=== PATIENT | female | born 1960 | race Caucasian/White ===

== ENCOUNTER 2020-01-28 08:18 | Emergency (ER) | payer SELFPAY ==
[~2020-01-28] VITALS: Ht 157.5 cm; Wt 50.0 kg
--- NOTE | 2020-01-28 08:31 | NUR ---
pt requesting a furniture mover helper
[2020-01-28] MEDS ORDERED: PLEASE ENTER ALLERGIES MC SCH (09:00)
[2020-01-28] MEDS ORDERED: ONDANSETRON ODT 4 MG PO ONE (09:00)
[2020-01-28] MEDS ORDERED: ACETAMINOPHEN 500 MG TABLET PO ONE (09:00)
[2020-01-28] MEDS ORDERED: ACETAMINOPHEN 500 MG TABLET ONE (09:14)
[2020-01-28] MEDS ORDERED: ONDANSETRON ODT 4 MG ONE (09:14)
[2020-01-28 09:29] LABS: BASOPHILS % (AUTO) 1 % (0-1); EOSINOPHILS % (AUTO) 2 % (1-7); LYMPHOCYTES % (AUTO) 20 % (22-44); MEAN CORPUSCULAR HEMOGLOBIN 31.1 pg (27.0-34.8); MEAN CORPUSCULAR HGB CONC 33.2 g/dL (32.4-35.8); MEAN PLATELET VOLUME 8.4 fL (7.4-10.4); MONOCYTES % (AUTO) 7 % (2-9); NEUTROPHILS % (AUTO) 70 % (42-75); PLATELET COUNT 341 x10^3/uL (130-400); RED CELL DISTRIBUTION WIDTH 13.2 % (9.6-15.2)
[2020-01-28 09:30] LABS: MD NO
[2020-01-28 09:38] LABS: ALBUMIN 3.7 g/dL (3.4-5.0); ANION GAP 5 mmol/L (5-15); CALCIUM 9.5 mg/dL (8.5-10.1); CHLORIDE 106 mmol/L (98-107); CREATININE 0.87 mg/dL (0.55-1.02)
--- NOTE | 2020-01-28 09:55 | NUR ---
PT GOING TO CT AT THIS TIME.
[2020-01-28 11:00] VITALS: BP 144/78
--- NOTE | 2020-01-28 11:56 | NUR ---
PT SITTING IN CHAIR BY BED GOING THROUGH HER BAGS. PT TALKING TO HERSELF QUIETLY. ERP AWARE. WILL CONTINUE TO MONITOR.
== END 2020-01-28 13:24 | disposition home or self-care (01) ==
LOC: ED 09:31
DX: S09.90XA Unspecified injury of head, initial encounter (principal); I25.2 Old myocardial infarction; I11.9 Hypertensive heart disease without heart failure; W22.09XA Striking against other stationary object, initial encounter; Y93.89 Activity, other specified; Y92.89 Other specified places as the place of occurrence of the external cause; Y99.8 Other external cause status
CPT/HCPCS: 36415; 70450; 71045; 80048; 82040; 85025; 93005; 99285; Q0162

== ENCOUNTER 2020-06-04 08:38 | Emergency (ER) | payer MEDICAID ==
[~2020-06-04] VITALS: Ht 149.9 cm; Wt 47.0 kg
[2020-06-04 08:44] VITALS: BP 149/101
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
[2020-06-04] MEDS ORDERED: hydrOXyzine 50MG TABLET ONE ×2 (09:04→09:21)
[2020-06-04] MEDS ORDERED: HYDROXYZINE PAMOATE 50MG CAP PO ONE (09:30)
--- NOTE | 2020-06-04 09:38 | NUR ---
Patient given discharge instructions and they have confirmed that they understand the instructions. Patient ambulatory with steady gait.
== END 2020-06-04 09:52 | disposition home or self-care (01) ==
LOC: ED 09:41 → MERGE 09:41 → ED 09:52
DX: M79.621 Pain in right upper arm (principal); M79.672 Pain in left foot; B86 Scabies; E11.9 Type 2 diabetes mellitus without complications; F17.210 Nicotine dependence, cigarettes, uncomplicated; Z90.710 Acquired absence of both cervix and uterus
CPT/HCPCS: 99283; 99406; Q0177

== ENCOUNTER 2020-06-29 09:17 | Emergency (ER) | payer MEDICAID ==
[~2020-06-29] VITALS: Ht 157.5 cm; Wt 46.0 kg
--- NOTE | 2020-06-29 09:20 | NUR ---
Pt states she is supposed to be taking Lisinopril and Albuterol for HTN and asthms respectively, but due to homeless status is unable to fill meds or follow up with PCP.
[2020-06-29] MEDS ORDERED: METHOCARBAMOL 750 MG TABLET ONE (09:51)
[2020-06-29] MEDS ORDERED: IBUPROFEN 200 MG TABLET ONE (09:51)
[2020-06-29] MEDS ORDERED: LISINOPRIL 10 MG TABLET ONE (09:51)
--- NOTE | 2020-06-29 09:53 | NUR ---
Pt removed all monitoring equipment and found not in room but with all belongings still present. Meds ready at bedside for when she returns to room. Department search for pt being made now.
--- NOTE | 2020-06-29 09:59 | NUR ---
Pt found back in room after department search and meds given as ordered. Pt needs clean pants because she had a small accident on her way to the restroom in hers. Donation room will be checked for pants to send her home with.
[2020-06-29] MEDS ORDERED: METHOCARBAMOL 750 MG TABLET PO ONE (10:00)
[2020-06-29] MEDS ORDERED: IBUPROFEN 200 MG TABLET PO ONE (10:00)
[2020-06-29] MEDS ORDERED: LISINOPRIL 10 MG TABLET PO ONE (10:00)
[2020-06-29 10:14] VITALS: BP 189/90
== END 2020-06-29 11:06 | disposition home or self-care (01) ==
LOC: ED 10:15
DX: S29.012A Strain of muscle and tendon of back wall of thorax, initial encounter (principal); S46.811A Strain of other muscles, fascia and tendons at shoulder and upper arm level, right arm, initial encounter; I10 Essential (primary) hypertension; Z72.9 Problem related to lifestyle, unspecified; E11.9 Type 2 diabetes mellitus without complications; Z90.710 Acquired absence of both cervix and uterus; F17.200 Nicotine dependence, unspecified, uncomplicated; X58.XXXA Exposure to other specified factors, initial encounter; Y93.89 Activity, other specified; Y92.89 Other specified places as the place of occurrence of the external cause; Y99.8 Other external cause status
CPT/HCPCS: 99284

== ENCOUNTER 2020-06-29 17:47 | Emergency (ER) | payer MEDICAID ==
[~2020-06-29] VITALS: Ht 157.5 cm; Wt 46.0 kg
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
[2020-06-29 18:17] VITALS: BP 150/76
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
--- NOTE | 2020-06-29 18:39 | NUR ---
Pt ambulatory back to bed with steady gait. Pt advised that she must keep her mask on due to state policy currently. Pt verbalizes understanding.
--- NOTE | 2020-06-29 18:50 | NUR ---
report given to Don DORSEY
--- NOTE | 2020-06-29 18:53 | NUR ---
received report from [facility] RN's
--- NOTE | 2020-06-29 19:01 | NUR ---
patient not in the room. phlebotomy support tech which is a sitter of room 40 heard patient states she is signing out and walked out. MD aware.
== END 2020-06-29 19:06 | disposition left against medical advice (07) ==
LOC: ED 18:09
DX: R06.02 Shortness of breath (principal); R94.31 Abnormal electrocardiogram [ECG] [EKG]; J45.909 Unspecified asthma, uncomplicated; E11.9 Type 2 diabetes mellitus without complications; I10 Essential (primary) hypertension; Z90.710 Acquired absence of both cervix and uterus
CPT/HCPCS: 93005; 99283